=== PATIENT | male | born 1970 | race Hispanic/Latino ===

== ENCOUNTER 2020-06-13 22:37 | Observation (INO) | payer OTHER ==
[2020-06-13] MEDS ORDERED: SODIUM CHLORIDE 0.9% 1000 ML 1,000 ML IV ONE (22:59)
[2020-06-13] MEDS ORDERED: levETIRAcetam 1000 MG/NS 0.75% 1,000 MG/100 ML BAG IV ONE (22:59)
--- NOTE | 2020-06-13 23:06 | Emergency Department Report ---
ED Seizure HPI - General Chief Complaint: Seizure Stated Complaint: AMS Time Seen by Provider: 06/13/20 22:59 Source: patient, EMS Mode of arrival: Stretcher - History of Present Illness Initial Comments: Patient is a 45-year-old male who presents emergency room via EMS for altered mental status, confusion and seizure-like activity. Patient brought in by EMS. Report received from EMS. EMS states the patient was more confused prior to arrival. EMS states the patient was postictal. EMS states that family stated that he was in a cardiac arrest and shaking. EMS states that patient never lost a pulse and was awake but confused. Patient states he is feeling much better. Patient states he feels fatigued. Patient states he had a seizure approximately 10 years ago and was evaluated and discharged home. Patient states he has not seen a neurologist since. Patient denies chest pain. Patient denies shortness of breath. Patient answering questions appropriately. Patient denies recent travel. Patient denies recent international travel. Patient denies exposure to the novel coronavirus. Patient denies sick contacts. Patient denies fever and chills. Patient denies cough. Patient denies diarrhea. Patient denies coming in contact with anybody with symptoms of the novel coronavirus. Complaint: seizure -: Sudden Description of Episode: loss of consciousness, tonic-clonic movement, post-event confusion -: minutes(s) Witnessed:: Yes Trauma: No Seizure History: none Place: home Possible Precipitating Event: none Associated Symptoms: confusion. denies: chest pain, cough, diaphoresis, fever/chills, loss of appetite, malaise, rash, shortness of breath, syncope, weakness, tongue injury, shoulder dislocation Treatments Prior to Arrival: none - Related Data Allergies Allergy/AdvReac Type Severity Reaction Status Date / Time No Known Allergies Allergy Verified 06/13/20 23:26 ED Review of Systems ROS: Stated complaint: AMS Other details as noted in HPI Constitutional: denies: chills, fever Eyes: denies: eye pain, eye discharge, vision change ENT: denies: ear pain, throat pain Respiratory: denies: cough, shortness of breath, wheezing Cardiovascular: denies: chest pain, palpitations Endocrine: no symptoms reported Gastrointestinal: denies: abdominal pain, nausea, diarrhea Genitourinary: denies: urgency, dysuria Musculoskeletal: denies: back pain, joint swelling, arthralgia Skin: denies: rash, lesions Neurological: as per HPI, confusion. denies: headache, weakness, paresthesias Psychiatric: denies: anxiety, depression Hematological/Lymphatic: denies: easy bleeding, easy bruising ED Past Medical Hx - Past Medical History Previous Medical History?: No - Surgical History Past Surgical History?: No - Family History Family history: no significant - Social History Smoking Status: Never Smoker Substance Use Type: None ED Physical Exam - General Limitations: No Limitations General appearance: alert, in no apparent distress - Head Head exam: Present: atraumatic, normocephalic - Eye Eye exam: Present: normal appearance - ENT ENT exam: Present: mucous membranes moist - Neck Neck exam: Present: normal inspection - Respiratory Respiratory exam: Present: normal lung sounds bilaterally. Absent: respiratory distress, wheezes, rales - Cardiovascular Cardiovascular Exam: Present: regular rate, normal rhythm. Absent: systolic murmur, diastolic murmur, rubs, gallop - GI/Abdominal GI/Abdominal exam: Present: soft, normal bowel sounds. Absent: distended, tenderness, guarding - Rectal Rectal exam: Present: deferred - Extremities Exam Extremities exam: Present: normal inspection - Back Exam Back exam: Present: normal inspection - Neurological Exam Neurological exam: Present: alert, oriented X3 - Psychiatric Psychiatric exam: Present: normal affect, normal mood - Skin Skin exam: Present: warm, dry, intact, normal color. Absent: rash ED Course - Reevaluation(s) Reevaluation #1: Patient has not any seizure activity. Patient still answering questions properly. Patient's lung sounds are clear. Patient receiving Keppra and fluids. 06/13/20 23:35 Reevaluation #2: I discussed all results with patient. I discussed plan of care with patient. Patient agrees with plan of care and admission. Patient to be admitted to the hospitalist service. 06/14/20 00:54 - Consultations Consultation #1: Hospitalist consulted for admission. Hospitalist to admit patient. 06/14/20 00:54 ED Medical Decision Making - Lab Data Result diagrams: 06/13/20 23:13 06/13/20 23:13 - Radiology Data Radiology results: report reviewed CT head/brain wo con INDICATION: Seizure today. Last seizure was over 19 years ago.. TECHNIQUE: Routine CT head without contrast. All CT scans at this location are performed using CT dose reduction for ALARA by means of automated exposure control. COMPARISON: None. FINDINGS: BRAIN / INTRACRANIAL CONTENTS: No acute hemorrhage, mass effect, midline shift, or hydrocephalus. No appreciable acute large territorial or lacunar infarct. No chronic infarct or focal atrophy. Normal brain volume and ventricular/sulcal size for age. ORBITS: No significant abnormality of visualized orbits. SINUSES / MASTOIDS: No significant abnormality of visualized sinuses and mastoid air cells. ADDITIONAL FINDINGS: None. IMPRESSION: 1. No acute intracranial abnormality. - Medical Decision Making Patient is a 49-year-old male that presents to the emergency room with seizure activity. Patient brought in by EMS. Patient had seizure over 10 years ago but does not require any seizure medication. Patient does not recall the seizure. Patient had postictal confusion. Patient improved slowly with time. Patient received Keppra and fluids in the ER. Patient had labs done which were essentially unremarkable. Patient had a head CT which was negative for acute findings. Patient moved to the hospital service for further evaluation treatment. Critical care time documented due to the multiple reassessments, prolonged time at the bedside, interpretation of diagnostics and labs. - Differential Diagnosis New onset seizure, seizure, stress, electrolyte imbalance, UTI Critical Care Time: Yes Critical care time in (mins) excluding proc time.: 35 Critical care attestation.: If time is entered above; I have spent that time in minutes in the direct care of this critically ill patient, excluding procedure time. Critical Care Time: 35 minutes ED Disposition Clinical Impression: New onset seizure, Confusion Disposition: DC-09 OP ADMIT IP TO THIS HOSP Is pt being admited?: Yes Does the pt Need Aspirin: No Condition: Critical Time of Disposition: 00:53
[2020-06-13 23:45] LABS: Basophils # (Auto) 0.1 K/mm3 (0.0-0.1); Basophils % (Auto) 0.8 % (0.0-1.8); Eosinophils # (Auto) 0.2 K/mm3 (0.0-0.4); Eosinophils % (Auto) 2.5 % (0.0-4.3); Hematocrit 46.2 % (35.5-45.6); Hemoglobin 15.5 gm/dl (11.8-15.2); Lymphocytes # (Auto) 1.5 K/mm3 (1.2-5.4); Lymphocytes % (Auto) 16.7 % (13.4-35.0); Mean Corpuscular HGB Conc 33 % (32-34); Mean Corpuscular Volume 93 fl (84-94); Monocytes # (Auto) 0.6 K/mm3 (0.0-0.8); Monocytes % (Auto) 6.3 % (0.0-7.3); Platelet Count 300 K/mm3 (140-440)
[2020-06-14 00:08] LABS: Alanine Aminotransferase 18 units/L (7-56); Albumin 4.6 g/dL (3.9-5); BUN/Creatinine Ratio 17; Blood Urea Nitrogen 19 mg/dL (9-20); Calcium 8.9 mg/dL (8.4-10.2); Hemolysis Index 9
--- NOTE | 2020-06-14 00:29 | Cat Scan Report ---
CT head/brain wo con INDICATION: Seizure today. Last seizure was over 19 years ago.. TECHNIQUE: Routine CT head without contrast. All CT scans at this location are performed using CT dos e reduction for ALARA by means of automated exposure control. COMPARISON: None. FINDINGS: BRAIN / INTRACRANIAL CONTENTS: No acute hemorrhage, mass effect, midline shift, or hydrocephalus. No appreciable acute large territorial or lacunar infarct. No chronic infarct or focal atrophy. Normal b rain volume and ventricular/sulcal size for age. ORBITS: No significant abnormality of visualized orbits. SINUSES / MASTOIDS: No significant abnormality of visualized sinuses and mastoid air cells. ADDITIONAL FINDINGS: None. IMPRESSION: 1. No acute intracranial abnormality. Signer Name: Emily Angulo MD Signed: 06/14/2020 12:25 AM Workstation Name: [id number]
[2020-06-14 01:12] LABS: Bilirubin,Urine NEG (Negative); Blood,Urine NEG (Negative); Color,Urine Yellow (Yellow); Hyaline Casts,Urine 4 /LPF; Mucus,Urine FEW /HPF; Urobilinogen,Urine < 2.0 mg/dL (<2.0)
[2020-06-14 01:20] LABS: Amphetamine Screen,Urine Negative; Benzodiazepines Screen,Urine Negative; Cannabinoid Screen,Urine Negative; Cocaine Screen,Urine Negative; Methadone Screen,Urine Negative; Opiate Screen,Urine Negative
[2020-06-14 02:13] VITALS: BP 104/59
[2020-06-14] MEDS ORDERED: ACETAMINOPHEN 325 MG TAB PO PRN (02:21)
[2020-06-14] MEDS ORDERED: MAGNESIUM HYDROXIDE (MOM) ORAL LIQD UDC PO PRN (02:21)
[2020-06-14] MEDS ORDERED: MORPHINE 2 MG/1 ML INJ IV PRN (02:21)
[2020-06-14] MEDS ORDERED: ONDANSETRON 4 MG/2 ML INJ IV PRN (02:21)
--- NOTE | 2020-06-14 02:31 | History and Physical Report ---
History of Present Illness Date of examination: 06/14/20 Date of admission: 06/14/20 00:57 Chief complaint: Seizures History of present illness: 45-year-old male with no significant past medical history presenting to the emergency room via EMS today with complaint of seizure-like activity and confusion. Family was said to have called EMS because patient was having some seizure-like activity and thereafter became confused. Patient denies any fall and denies any headache. No history of urinary or fecal incontinence. Patient denies any fever or chills, no cough, No chest pain or shortness of breath, no nausea vomiting, no abdominal pain, no hematuria or dysuria. He states he had seizure disorder about 10 years ago and thereafter has never had any seizure-like activity and he is also not been on any medications. Work-up in the emergency room today has been unremarkable. Patient was commenced on IV Keppra. Patient is being admitted for seizures. Past History Past Medical History: No medical history Past Surgical History: No surgical history Social history: no significant social history Family history: no significant family history Medications and Allergies Allergies Allergy/AdvReac Type Severity Reaction Status Date / Time No Known Allergies Allergy Verified 06/13/20 23:26 Active Meds: Active Medications Acetaminophen (Acetaminophen 325 Mg Tab) 650 mg PO Q4H PRN PRN Reason: Pain MILD(1-3)/Fever >100.5/GARCIA Heparin Sodium (Porcine) (Heparin 5,000 Unit/1 Ml Vial) 5,000 unit SUB-Q Q8HR GALEN Magnesium Hydroxide (Magnesium Hydroxide (Mom) Oral Liqd Udc) 30 ml PO Q4H PRN PRN Reason: Constipation Morphine Sulfate (Morphine 2 Mg/1 Ml Inj) 2 mg IV Q4H PRN PRN Reason: Pain, Moderate (4-6) Ondansetron HCl (Ondansetron 4 Mg/2 Ml Inj) 4 mg IV Q8H PRN PRN Reason: Nausea And Vomiting Sodium Chloride (Sodium Chloride 0.9% 10 Ml Flush Syringe) 10 ml IV BID GALEN Sodium Chloride (Sodium Chloride 0.9% 10 Ml Flush Syringe) 10 ml IV PRN PRN PRN Reason: LINE FLUSH Review of Systems Constitutional: no fever, no chills Ears, nose, mouth and throat: no nasal congestion, no sore throat Cardiovascular: no chest pain, no palpitations Respiratory: no cough, no shortness of breath Gastrointestinal: no abdominal pain, no nausea, no vomiting, no diarrhea Genitourinary Male: no dysuria, no hematuria, no flank pain Musculoskeletal: no neck pain, no low back pain Integumentary: no rash, no pruritis Neurological: convulsions, no headaches, no confusion Psychiatric: no anxiety, no depression Endocrine: no polyphagia, no polydipsia, no polyuria, no nocturia Exam - Constitutional Vitals: Temp Pulse Resp BP Pulse Ox 96 H 22 104/59 97 06/14/20 00:46 06/14/20 00:46 06/14/20 00:46 06/14/20 00:46 General appearance: Present: no acute distress, well-nourished - EENT Eyes: Present: PERRL, EOM intact. Absent: scleral icterus ENT: hearing intact, clear oral mucosa, dentition normal - Neck Neck: Present: supple, normal ROM - Respiratory Respiratory effort: normal Respiratory: bilateral: CTA - Cardiovascular Rhythm: regular Heart Sounds: Present: S1 & S2. Absent: gallop, systolic murmur, diastolic murmur, rub, click - Extremities Extremities: no ischemia, pulses intact, pulses symmetrical, No edema, normal temperature, normal color, Full ROM Peripheral Pulses: within normal limits - Abdominal General gastrointestinal: Present: soft, non-tender, non-distended, normal bowel sounds. Absent: mass - Integumentary Integumentary: Present: clear, warm, dry. Absent: rash - Musculoskeletal Musculoskeletal: strength equal bilaterally - Psychiatric Psychiatric: appropriate mood/affect, intact judgment & insight, memory intact, cooperative - Neurologic Neurologic: CNII-XII intact, no focal deficits, moves all extremities Results - Labs CBC & Chem 7: 06/13/20 23:13 06/13/20 23:13 Labs: Abnormal lab results 06/13/20 06/13/20 Range/Units 23:13 23:13 Hgb 15.5 H (11.8-15.2) gm/dl Hct 46.2 H (35.5-45.6) % RDW 13.0 L (13.2-15.2) % Seg Neutrophils % 73.7 H (40.0-70.0) % Sodium 136 L (137-145) mmol/L Glucose 133 H (75-100) mg/dL Assessment and Plan - Patient Problems (1) New onset seizure Current Visit: Yes Status: Acute Plan to address problem: Patient commenced on IV Keppra. We will place on seizure precautions. We will request for EEG and also schedule patient for neurology evaluation. (2) DVT prophylaxis Current Visit: Yes Status: Acute Plan to address problem: Patient placed on subcutaneous heparin. (3) Full code status Current Visit: Yes Status: Acute Plan to address problem: Patient is full code.
[2020-06-14] MEDS ORDERED: LORazepam 2 MG/ML VIAL IV PRN (04:12)
[2020-06-14] MEDS ORDERED: HEPARIN 5,000 UNIT/1 ML VIAL SUB-Q SCH (06:00)
--- NOTE | 2020-06-14 09:15 | Discharge Summary ---
Providers - Providers Date of Admission: 06/14/20 00:57 Date of discharge: 06/14/20 Attending physician: FINN HERNANDEZ MD 06/14/20 02:21 Consult to Physician [CONS] Routine Comment: Consulting Provider: ROSA WADSWORTH Physician Instructions: Reason For Exam: Seizure Primary care physician: [employer] INSTRUCTOR Hospitalization Reason for admission: seizure disorder Condition: Stable Hospital course: History of present illness: 45-year-old male with no significant past medical history presenting to the emergency room via EMS today with complaint of seizure-like activity and confusion. Family was said to have called EMS because patient was having some seizure-like activity and thereafter became confused. Patient denies any fall and denies any headache. No history of urinary or fecal incontinence. Patient denies any fever or chills, no cough, No chest pain or shortness of breath, no nausea vomiting, no abdominal pain, no hematuria or dysuria. He states he had seizure disorder about 10 years ago and thereafter has never had any seizure-like activity and he is also not been on any medications. Work-up in the emergency room today has been unremarkable. Patient was commenced on IV Keppra. Patient is being admitted for seizures. Hospital course I have seen and evaluated the patient this morning, patient was alert and oriented. Patient does not have any complaints. Patient said he had similar episodes 10 years ago. And patient need to be on Keppra and discharged with Keppra 500 mg p.o. twice daily. patient advised not to drive until cleared by neurology as an O/P. I advised the patient to follow-up with his primary care physician if Keppra needs to be continued for long-term. Patient was hemodynamically stable at the time of discharge. Patient agreed with the plan of care. Disposition: DC-01 TO HOME OR SELFCARE Final Discharge Diagnosis (Prints w/discharge instructions): seizure disorder Time spent for discharge: 25 minutes - Discharge Diagnoses (1) New onset seizure Status: Acute Core Measure Documentation - Palliative Care Palliative Care/ Comfort Measures: Not Applicable - Core Measures Any of the following diagnoses?: none Exam - Physical Exam Narrative exam: Not in cardiopulmonary distress. The patient appeared well nourished and normally developed. Vital signs as documented. Head exam is unremarkable. No scleral icterus . Neck is without jugular venous distension, thyromegaly, or carotid bruits. Lungs are clear to auscultation. Cardiac exam reveals regular rate and Rhythm. Abdominal exam reveals normal bowel sounds, nontender, no organomegaly. Extremities are nonedematous and both femoral and pedal pulses are normal. GAUGER DELIVERY: Alert and oriented 3. No focal weakness. - Constitutional Vitals: Temp Pulse Resp BP Pulse Ox 98.4 F 96 H 22 104/59 97 06/13/20 22:37 06/14/20 00:46 06/14/20 00:46 06/14/20 00:46 06/14/20 00:46 Plan Activity: no restrictions Weight Bearing Status: Full Weight Bearing Diet: regular Additional Instructions: Advised to have f/u with neurologist and PCP Follow up with: PRIMARY CARE, [Primary Care Provider] - 3-5 Days Prescriptions: levETIRAcetam [Keppra TAB] 500 mg PO BID #60 tablet
[2020-06-14] MEDS ORDERED: levETIRAcetam 500 MG in DEXTROSE 5% IN WATER 100 ML IV SCH (10:00)
== END 2020-06-14 09:30 | disposition home or self-care (01) ==
LOC: ED 22:37 → 3A 06-14 00:57
PROVIDERS: ADMIT Internal Medicine Geriatric Medicine; ATTEND Internal Medicine
DX: R56.9 Unspecified convulsions (principal); R41.0 Disorientation, unspecified; Z79.899 Other long term (current) drug therapy
CPT/HCPCS: 36415; 70450; 80053; 80307; 81001; 85025; 96361; 96372; 96374; 99291; G0378; J1644; J1953; J7030; 80320; G0480